=== PATIENT | male | born 1980 | race African-American/Black ===

== ENCOUNTER 2021-03-04 18:51 | Emergency (ER) | payer MEDICAID ==
[~2021-03-04] VITALS: Ht 188 cm; Wt 111.1 kg
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
--- NOTE | 2021-03-04 20:31 | NUR ---
Patient does not wish to proceed with medical care recommended by Dr. Miller. Patient given information related to possible complications, up to and including , which could occur as a result of leaving the hospital at this time. Patient verbalizes understanding of risks involved due to leaving against medical advice. Patient has signed AMA form.
--- NOTE | 2021-03-04 20:34 | NUR ---
Patient discharged to home in stable condition. Written and verbal after care instructions given. Patient verbalizes understanding of instruction.
[2021-03-05 01:48] VITALS: BP 123/86
[2021-03-05] MEDS ORDERED: NAPR-1164 PO (19:08)
== END 2021-03-04 20:31 | disposition left against medical advice (07) ==
LOC: ER 18:51
DX: S16.1XXA Strain of muscle, fascia and tendon at neck level, initial encounter (principal); S09.8XXA Other specified injuries of head, initial encounter; W20.8XXA Other cause of strike by thrown, projected or falling object, initial encounter; Y93.89 Activity, other specified; Y92.89 Other specified places as the place of occurrence of the external cause; Y99.8 Other external cause status

== ENCOUNTER 2021-03-05 17:21 | Emergency (ER) | payer MEDICAID ==
[~2021-03-05] VITALS: Ht 185.4 cm; Wt 108.9 kg
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
--- NOTE | 2021-03-05 18:38 | NUR ---
DR. CALDERON AT BEDSIDE. CANCEL ORDER FOR COLLAR
[2021-03-05] MEDS ORDERED: NAPR-1164 PO (19:08)
[2021-03-05 19:18] VITALS: BP 145/81
--- NOTE | 2021-03-05 19:18 | NUR ---
Patient discharged to home in stable condition. Written and verbal after care instructions given. Patient verbalizes understanding of instruction.
== END 2021-03-05 19:19 | disposition home or self-care (01) ==
LOC: ER 17:22
DX: S16.1XXA Strain of muscle, fascia and tendon at neck level, initial encounter (principal); S09.8XXA Other specified injuries of head, initial encounter; W22.8XXA Striking against or struck by other objects, initial encounter; Y93.89 Activity, other specified; Y92.89 Other specified places as the place of occurrence of the external cause; Y99.8 Other external cause status
CPT/HCPCS: 70450-TC; 72125-TC

== ENCOUNTER 2023-01-30 18:43 | Emergency (ER) | payer MEDICAID, OTHER ==
[~2023-01-30] VITALS: Ht 185.4 cm; Wt 111.1 kg
[~2023-01-30 18:43] MED LIST: NAPR-1164 PO
[2023-01-30 18:53] VITALS: BP 132/76; TEMP 98.4
--- NOTE | 2023-01-30 19:20 | NUR ---
Oswaldo AOx4, able to express his concerns. Oswaldo states he has been experiencing pain on left thumb for about 1 week. Discussed plan of care, patient verbalized agreement.
[2023-01-30] MEDS ORDERED: CEPH500T PO (19:26)
[2023-01-30] MEDS ORDERED: IBUP-1955 PO (19:26)
[2023-01-30] MEDS ORDERED: SULF1TAB48 PO (19:26)
--- NOTE | 2023-01-30 19:31 | NUR ---
Discussed discharge plan, patient verbalized agreement. Patient educated on importance of medication adherence.
== END 2023-01-30 19:31 | disposition home or self-care (01) ==
LOC: ER 18:49
DX: L03.012 Cellulitis of left finger (principal); Z79.899 Other long term (current) drug therapy
CPT/HCPCS: 73130-TC